=== PATIENT | female | born 1990 | race African-American/Black ===

== ENCOUNTER 2017-12-22 12:21 | Outpatient (CLI) | payer BC ==
[~2017-12-22] VITALS: Ht 180.3 cm; Wt 70.5 kg
[2017-12-22 12:40] VITALS: BP 115/77
[2017-12-22] MEDS ORDERED: PRENATAL TABLE1 EAC3 PO (12:57)
[2017-12-22 14:00] VITALS: BP 111/69
[2017-12-23] MEDS ORDERED: IRON325 M1 PO (03:48)
[2017-12-23] MEDS ORDERED: IBUPROFEN800 MG PO (11:00)
== END 2017-12-22 15:07 | disposition home or self-care (01) ==
LOC: LDRP-OP 12:21 → 2WEST 12:22 → LDRP-OP 01-16 07:51
DX: O26.893 Other specified pregnancy related conditions, third trimester (principal); Z3A.40 40 weeks gestation of pregnancy
CPT/HCPCS: 59025; G0378

== ENCOUNTER 2017-12-23 01:59 | Inpatient (IN) | payer BC ==
[~2017-12-23] VITALS: Ht 180.3 cm; Wt 70.9 kg
[2017-12-23] VITALS (21 sets, daily range): BP systolic 92–184; BP diastolic 53–125
[~2017-12-23 01:59] MED LIST: PRENATAL TABLE1 EAC3 PO
[2017-12-23 02:59] LABS: BASOPHIL (%) 0.1 % (0-1); EOSINOPHIL (%) 0.3 % (0-5); HEMATOCRIT 32.5 % (36.0-46.0); HEMOGLOBIN 11.3 G/DL (11.9-15.5); IMMATURE GRANULOCYTE (%) 0.3 % (0.0-0.7); LYMPHOCYTE (%) 31.7 % (15-42); LYMPHOCYTE COUNT 2.2 K/uL (1.0-2.8); MCH 32.7 PG (29.0-34.0); MCHC 34.8 G/DL (30.0-36.0); MCV 93.9 FL (83-99); MONOCYTE (%) 11.8 % (3-12); MONOCYTE COUNT 0.8 K/uL (0-0.8); NEUTROPHIL (%) 55.8 % (45-76); NEUTROPHIL COUNT 3.8 K/uL (1.8-6.4); PLATELET COUNT 154 K/uL (156-360); RBC DIS.WIDTH-CV 12.4 % (11.8-14.6); RBC DIS.WIDTH-SD 42.4 % (39-53); RED BLOOD COUNT 3.46 M/uL (3.80-5.20); WHITE BLOOD COUNT 6.8 K/uL (4.1-10.2)
[2017-12-23 03:18] LABS: AMPHETAMINE NEGATIVE (500 ng/mL); BARBITURATES NEGATIVE (200 ng/mL); BENZODIAZEPINES NEGATIVE (150 ng/mL); BUPRENORPHINE NEGATIVE (10 ng/mL); COCAINE NEGATIVE (150 ng/mL); METHADONE NEGATIVE (200 ng/mL); METHAMPHETAMINE NEGATIVE (500 ng/mL); OPIATES (MORPHINE) NEGATIVE (100 ng/mL); OXYCODONE NEGATIVE (100 ng/mL); PHENCYCLIDINE NEGATIVE (25 ng/mL); PROPOXYPHENE NEGATIVE (300 ng/mL); THC CANNABINOIDS NEGATIVE (50 ng/mL); TRICYCLIC ANTIDEPRESSANTS NEGATIVE (300 ng/mL)
[2017-12-23] MEDS ORDERED: IRON325 M1 PO (03:48)
[2017-12-23] MEDS ORDERED: IBUPROFEN800 MG PO (11:00)
[2017-12-24 07:52] VITALS: BP 107/62
[2017-12-24 15:00] VITALS: BP 117/73
[2017-12-24 22:49] VITALS: BP 108/68
[2017-12-25 07:20] VITALS: BP 100/50
== END 2017-12-25 13:50 | disposition home or self-care (01) | DRG 775 ==
LOC: LDRP-OP 01:59 → 2WEST 02:00 → LDRP-OP 01-16 15:25
PROVIDERS: Midwife
PROC: 3E0R3BZ Introduction of Anesthetic Agent into Spinal Canal, Percutaneous Approach (ICD-10-PCS; principal; 2017-12-23)
PROC: 10907ZC Drainage of Amniotic Fluid, Therapeutic from Products of Conception, Via Natural or Artificial Opening (ICD-10-PCS; principal; 2017-12-23)
PROC: 00HU33Z Insertion of Infusion Device into Spinal Canal, Percutaneous Approach (ICD-10-PCS; principal; 2017-12-23)
PROC: 10E0XZZ Delivery of Products of Conception, External Approach (ICD-10-PCS; principal; 2017-12-23)
DX: O48.0 Post-term pregnancy (principal); Z3A.41 41 weeks gestation of pregnancy; Z37.0 Single live birth
CPT/HCPCS: 85025; C1755; J3010; J7120